=== PATIENT | female | born 1950 | race Caucasian/White ===

== ENCOUNTER 2019-02-18 09:27 | Outpatient (CLI) | payer MEDICARE, OTHER ==
[2019-02-18 10:41] LABS: BASOPHILS # (AUTO) 0.04 x10^3/uL (0-0.1); BASOPHILS % (AUTO) 0 % (0-1); EOSINOPHILS # (AUTO) 0.17 x10^3/uL (0-0.4); EOSINOPHILS % (AUTO) 2 % (1-7); LYMPHOCYTES # (AUTO) 2.97 x10^3/uL (1-3.4); LYMPHOCYTES % (AUTO) 30 % (22-44); MD NO; MEAN CORPUSCULAR HEMOGLOBIN 28.6 pg (27.0-34.8); MEAN CORPUSCULAR HGB CONC 32.8 g/dL (32.4-35.8); MEAN CORPUSCULAR VOLUME 87.2 fL (80-100); MEAN PLATELET VOLUME 8.4 fL (7.4-10.4); MONOCYTES # (AUTO) 0.55 x10^3/uL (0.2-0.8); MONOCYTES % (AUTO) 6 % (2-9); NEUTROPHILS # (AUTO) 6.12 x10^3/uL (1.8-6.8); NEUTROPHILS % (AUTO) 62 % (42-75); PLATELET COUNT 293 x10^3/uL (130-400); RED BLOOD COUNT 4.58 x10^6/uL (3.82-5.3); RED CELL DISTRIBUTION WIDTH 13.9 % (9.6-15.2)
[2019-02-18 10:47] LABS: MICROSCOPIC AUTO
[2019-02-18 10:48] LABS: CULTURE INDICATED? NO
[2019-02-18 10:51] LABS: INTERNATIONAL NORMALIZED RATIO 0.97 (0.93-1.1); PROTHROMBIN TIME 10.2 Seconds (9.6-11.5)
[2019-02-18 10:53] LABS: ALANINE AMINOTRANSFERASE 44 U/L (12-78); ALBUMIN 3.8 g/dL (3.4-5.0); ANION GAP 7 mmol/L (5-15); CALCIUM 8.9 mg/dL (8.5-10.1); CHLORIDE 107 mmol/L (98-107); CREATININE 0.94 mg/dL (0.55-1.02)
[2019-02-18 10:55] LABS: ALKALINE PHOSPHATASE 39 U/L (45-117); BILIRUBIN,TOTAL 0.3 mg/dL (0.2-1.0); TOTAL PROTEIN 7.9 g/dL (6.4-8.2)
[2019-02-21] MEDS ORDERED: LANTUS SC (14:19)
[2019-02-21] MEDS ORDERED: LISINOPRIL PO (14:19)
[2019-02-21] MEDS ORDERED: LOVASTATIN PO (14:19)
[2019-02-21] MEDS ORDERED: TRAZODONE PO (14:19)
[2019-02-21] MEDS ORDERED: FLUOXETINE PO (14:19)
[2019-02-21] MEDS ORDERED: GLIPIZIDE PO (14:19)
[2019-02-21] MEDS ORDERED: PROP20TA PO (14:19)
[2019-02-21] MEDS ORDERED: PROP40TA PO (14:19)
[2019-02-21] MEDS ORDERED: LEVOTHYROXINE PO (14:19)
[2019-02-21] MEDS ORDERED: VICTOZA SC (14:19)
[2019-02-21] MEDS ORDERED: SPIRONOLACTONE PO (14:19)
[2019-02-21] MEDS ORDERED: JANUMET PO (14:19)
== END 2019-02-18 23:59 | disposition home or self-care (01) ==
LOC: STAR 09:27
PROVIDERS: ATTEND Neurological Surgery
DX: Z01.818 Encounter for other preprocedural examination (principal); G56.01 Carpal tunnel syndrome, right upper limb
CPT/HCPCS: 36415; 80053; 81001; 85025; 85610; 85730; 93005

== ENCOUNTER → 2019-04-25 | Outpatient (CLI) | payer MEDICARE ==
[~2019-04-25] MED LIST: BUTA-218 PO; DEXL60CA2 PO; FLUO60TA PO; FLUOXETINE PO; GLIP10TA13 PO; GLIPIZIDE PO; INSU100I34 SC; JANUMET PO; LANTUS SC; LEVOTHYROXINE PO; LIRA0.6P SC; LISI30TA4 PO; LISINOPRIL PO; LOVA40TA2 PO; LOVASTATIN PO; PROP20TA PO; PROP40TA PO; SITA1TAB5 PO; SPIR100T4 PO; SPIRONOLACTONE PO; TRAZ50TA66 PO; TRAZODONE PO; VICTOZA SC; VITAMIN B100 PO; [UNRECOGNIZED DRUG - OTHER] PO
== END | disposition home or self-care (01) ==
LOC: STAR 09:47
PROVIDERS: ATTEND Orthopaedic Surgery
DX: Z01.818 Encounter for other preprocedural examination (principal); M17.12 Unilateral primary osteoarthritis, left knee; G56.00 Carpal tunnel syndrome, unspecified upper limb
CPT/HCPCS: 87081; 93005